=== PATIENT | female | born 1985 | race Two or more races ===

== ENCOUNTER 2018-03-01 07:45 | Inpatient (IN) | payer OTHER ==
[2018-03-01 08:22] VITALS: BMI 32.5
[2018-03-01 08:59] LABS: BASO % 0.3 % (0-2.0); EOS % 0.5 % (0-4.5); HEMATOCRIT 31.3 % (32.4-45.2); LYMPH % 19.5 % (8-40); MCH 28.4 pg (25.7-33.7); MCHC 35.1 g/dl (32.0-36.0); MEAN CELL VOLUME 81.1 fl (80-96); MEAN PLT VOLUME 8.5 fl (7.5-11.1); MONO % 6.2 % (3.8-10.2); NEUT % 73.5 % (42.8-82.8); PLATELET COUNT 246 K/MM3 (134-434); RBC 3.86 M/mm3 (3.60-5.2); WHITE BLOOD COUNT 8.6 K/mm3 (4.0-10.0)
[2018-03-01] MEDS ORDERED: BUTORPHANOL TARTRATE 1 MG/ML VIAL IVPB ONE (08:59)
[2018-03-01] MEDS ORDERED: PROMETHAZINE HCL 25 MG/1 ML VIAL IVPUSH ONE (08:59)
--- NOTE | 2018-03-01 08:59 | HP ---
Past Medical History - Admission Chief Complaint: Contractions, light vaginal bleeding History of Present Illness: 32 y/o with SIUP at 39 weeks with c/o labor pains and light vaginal bleeding since 10pm last night. +Fm. uncomplicated. History Source: Patient, Medical Record Limitations to Obtaining History: No Limitations - Past Medical History Cardiovascular: No: HTN Pulmonary: No: COPD Gastrointestinal: No: GERD Hepatobiliary: No: Hepatitis B, Hepatitis C Reproductive: No: Endometriosis, PID ...: 4 ...Para: 2 ...Term: 2 ...Induced : 1 ...EDC by [facility]: 03/07/18 Heme/Onc: No: Anemia Infectious Disease: No: HIV, MRSA, STD's Psych: No: Bipolar, Depression - Past Surgical History Past Surgical History: Yes: None Hx Myomectomy: No Hx Transabdominal Cerclage: No - Smoking History Smoking history: Never smoked - Alcohol/Substance Use Hx Alcohol Use: No History of Substance Use: reports: None - Social History Usual Living Arrangement: Yes: With Spouse ADL: Independent History of Recent Travel: No Home Medications - Allergies Allergies/Adverse Reactions: Allergies Allergy/AdvReac Type Severity Reaction Status Date / Time No Known Allergies Allergy Verified 03/01/18 08:26 - Home Medications Home Medications: Ambulatory Orders Tablet 1 tab PO DAILY 03/01/18 Review of Systems - Review of Systems Constitutional: reports: No Symptoms Eyes: reports: No Symptoms HENT: reports: No Symptoms Neck: reports: No Symptoms Cardiovascular: reports: No Symptoms Respiratory: reports: No Symptoms Gastrointestinal: reports: Other (contractions) Genitourinary: reports: Vaginal Bleeding (bloody show/light bleeding) Breasts: reports: No Symptoms Reported Musculoskeletal: reports: No Symptoms Integumentary: reports: No Symptoms Neurological: reports: No Symptoms Endocrine: reports: No Symptoms Hematology/Lymphatic: reports: No Symptoms Psychiatric: reports: No Symptoms Physical Exam - Maternity Vital Signs: Vital Signs Temperature 97.2 F L 03/01/18 08:15 Pulse Rate 82 03/01/18 08:15 Respiratory Rate 18 03/01/18 08:15 Blood Pressure 104/67 03/01/18 08:15 O2 Sat by Pulse Oximetry (%) Constitutional: Yes: Well Nourished, Calm, Mild Distress (with contractions) Neck: Yes: Supple Cardiovascular: Yes: Regular Rate and Rhythm Lungs: Clear to auscultation - Abdominal Exam/OB Number of Fetuses: Single Presentation: Vertex Contractions: Yes Intensity: Mod/Strong Category: I Accelerations: Uniform Decelerations: None - Vaginal Exam/OB Dilatation (cm): 5 Effacement (%): 70 Amniotic Membrane Status: Ruptured (AROM for clear fluid) Presentation: Vertex/Position Station: -2 - Physical Exam Psychiatric: Yes: Alert, Oriented Hemorrhage Risk Assessment - Risk Factors Medium Risk Factors: Yes: None High Risk Factors: Yes: None Risk Score: 1 Risk Level: Medium Risk Problem List - Problems (1) Active labor at term Code(s): [id number] - Assessment/Plan 32 y/o with SIUP in labor AFVSS FHTS cat 1 active management of labor GBS negative
[2018-03-01] MEDS ORDERED: ELECTROLYTE-148 SOLN 1,000 ML IV SCH (09:00)
[2018-03-01 09:11] LABS: INR 0.95 (0.83-1.09); PROTHROMBIN TIME (PATIENT) 11.2 SEC (9.7-13.0)
[2018-03-01 09:14] LABS: ACTIVATED PTT 25.5 SECONDS (25.2-36.5)
[2018-03-01] MEDS ORDERED: OXYTOCIN 30 UNITS in 0.9% NS 30 UNIT/500 ML INFUS.BAG IVPB SCH (09:15)
[2018-03-01 09:41] LABS: ANION GAP 13 MMOL/L (8-16); BLOOD UREA NITROGEN 8 mg/dL (7-18); CALCIUM 8.5 mg/dL (8.5-10.1); CHLORIDE 108 mmol/L (98-107); CO2 19 mmol/L (21-32); CREATININE 0.4 mg/dL (0.55-1.3); GLUCOSE,RANDOM 102 mg/dL (74-106); POTASSIUM 3.7 mmol/L (3.5-5.1); SODIUM 140 mmol/L (136-145)
[2018-03-01] MEDS ORDERED: TUBERCULIN PPD 5 TU/0.1ML SYRINGE (IN PATIENT USE ONLY) ID ONE (10:00)
[2018-03-01] MEDS ORDERED: OXYTOCIN 20 UNITS in 0.9% NS 20 UNIT/1,000 ML INFUS.BAG IV ONE ×2 (10:23→11:27)
[2018-03-01] MEDS ORDERED: LIDOCAINE HCL 1% PRESERVATIVE FREE - 30ML VIAL ONE (11:21)
[2018-03-01] MEDS ORDERED: ACETAMINOPHEN 325 MG TABLET (FP) PO PRN (11:55)
[2018-03-01] MEDS ORDERED: METHYLERGONOVINE MALEATE 0.2 MG/1 ML AMP IM PRN (11:55)
[2018-03-01] MEDS ORDERED: BENZOCAINE 28 GM HEMORRHOIDAL OINTMENT PR PRN (11:55)
[2018-03-01] MEDS ORDERED: WITCH HAZEL 50% (TUCKS) 40 PAD/JAR PAD TP PRN (11:55)
[2018-03-01] MEDS ORDERED: BENZOCAINE 20% 57 GM BOTTLE TP PRN (11:55)
[2018-03-01] MEDS ORDERED: IBUPROFEN 600 MG TABLET (FP) PO PRN (11:55)
[2018-03-01] MEDS ORDERED: BISACODYL 10 MG SUPP.RECT PR PRN (11:55)
--- NOTE | 2018-03-01 11:57 | PN ---
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
[2018-03-01] MEDS: PRENATAL VITAMINS W/ FOLIC ACID TABLET (FP) PO SCH (15:40)
[2018-03-02 07:22] LABS: BASO % 0.3 % (0-2.0); EOS % 1.3 % (0-4.5); HEMATOCRIT 32.5 % (32.4-45.2); HEMOGLOBIN 10.7 GM/dL (10.7-15.3); LYMPH % 25.7 % (8-40); MCH 26.8 pg (25.7-33.7); MCHC 32.9 g/dl (32.0-36.0); MEAN CELL VOLUME 81.3 fl (80-96); MEAN PLT VOLUME 8.1 fl (7.5-11.1); MONO % 5.2 % (3.8-10.2); NEUT % 67.5 % (42.8-82.8); PLATELET COUNT 233 K/MM3 (134-434); RBC 3.99 M/mm3 (3.60-5.2); RDW 15.4 % (11.6-15.6); WHITE BLOOD COUNT 10.7 K/mm3 (4.0-10.0)
[2018-03-02] MEDS: PRENATAL VITAMINS W/ FOLIC ACID TABLET (FP) PO SCH (09:34)
[2018-03-02] MEDS ORDERED: DIPHTH,PERTUSS(ACELL),TET 0.5 ML DISP.SYRIN IM ONE (10:00)
--- NOTE | 2018-03-02 10:04 | PN ---
Post Progress Note - Subjective Subjective: Pt doing well, no complaints. Tolerating diet, ambulating, voiding. VB minimal. Type of Delivery: Vital Signs: Vital Signs Temperature 98.4 F 03/02/18 08:44 Pulse Rate 81 03/02/18 08:44 Respiratory Rate 20 03/02/18 08:44 Blood Pressure 122/77 03/02/18 08:44 O2 Sat by Pulse Oximetry (%) Breast Exam: Yes: Soft Uterus: Yes: Fundus Firm Abdomen/GI: Yes: Abdomen soft, Passing flatus, Tolerating PO. No: Tender Lochia: Yes: Rubra Extremities: Yes: Calves non-tender. No: Calf tenderness Perineum: Yes: Laceration (1st degree) Activity: Ambulating - Labs Labs: CBC WBC 10.7 K/mm3 (4.0-10.0) H 03/02/18 06:34 RBC 3.99 M/mm3 (3.60-5.2) 03/02/18 06:34 Hgb 10.7 GM/dL (10.7-15.3) 03/02/18 06:34 Hct 32.5 % (32.4-45.2) 03/02/18 06:34 MCV 81.3 fl (80-96) 03/02/18 06:34 MCH 26.8 pg (25.7-33.7) 03/02/18 06:34 MCHC 32.9 g/dl (32.0-36.0) 03/02/18 06:34 RDW 15.4 % (11.6-15.6) 03/02/18 06:34 Plt Count 233 K/MM3 (134-434) 03/02/18 06:34 MPV 8.1 fl (7.5-11.1) 03/02/18 06:34 Absolute Neuts (auto) 7.2 K/mm3 (1.5-8.0) 03/02/18 06:34 Neutrophils % 67.5 % (42.8-82.8) 03/02/18 06:34 Lymphocytes % 25.7 % (8-40) D 03/02/18 06:34 Monocytes % 5.2 % (3.8-10.2) 03/02/18 06:34 Eosinophils % 1.3 % (0-4.5) D 03/02/18 06:34 Basophils % 0.3 % (0-2.0) 03/02/18 06:34 Nucleated RBC % 0 % (0-0) 03/02/18 06:34 Problem List - Problems (1) Active labor at term Code(s): CJM5122 - (2) Vaginal delivery Code(s): O80 - ENCOUNTER FOR FULL-TERM UNCOMPLICATED DELIVERY Assessment/Plan 32 y/o PPD#1 s/p normal regular diet ambulation routine care
[2018-03-03] MEDS: PRENATAL VITAMINS W/ FOLIC ACID TABLET (FP) PO SCH (09:30)
[2018-03-03 11:12] VITALS: BP 106/65; PULSE 70; TEMP 99.6
--- NOTE | 2018-03-03 14:38 | DS ---
Physical Exam-QUALITY CONTROL ASSOCIATE Vital Signs: Vital Signs Temperature 99.6 F 03/03/18 09:00 Pulse Rate 70 03/03/18 09:00 Respiratory Rate 17 03/03/18 09:00 Blood Pressure 106/65 03/03/18 09:00 O2 Sat by Pulse Oximetry (%) Constitutional: Yes: Well Nourished Eyes: Yes: Conjunctiva Clear HENT: Yes: Atraumatic Neck: Yes: Supple Cardiovascular: Yes: Regular Rate and Rhythm Respiratory: Yes: Regular Gastrointestinal: Yes: Normal Bowel Sounds External Genitalia: Yes: Normal Vaginal Exam: Yes: Normal Cervix: Yes: Normal Uterus: Yes: Firm ....Post : Yes: Uterus firm, Slight lochia rubra Breast(s): Yes: WNL Musculoskeletal: Yes: WNL Neurological: Yes: Alert, Oriented ...Motor Strength: WNL Psychiatric: Yes: Alert, Oriented Labs: CBC, BMP 03/02/18 06:34 03/01/18 08:40 Delivery - Delivery Vaginal Delivery: No Problems Type of Anesthesia: None Episiotomy/Laceration: 1st degree EBL (cc): 250 Delivery, Single - Stages of Labor Date 1st Stage Initiatied: 03/01/18 Time 1st Stage Initiated: 05:00 Date 2nd Stage Initiated: 03/01/18 Time 2nd Stage Initiated: 11:30 Date of Delivery: 03/01/18 Time of Delivery: 11:40 Time Placenta Delivered: 11:45 Placenta: Yes: Spontaneous - 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: Yes Name: Alma Delia Isabel Infant Gender: Female Weight: 6 lb Position: Left, OA Total Hours ROM (Hrs/Mins): 2H40M - 1 Minute Total Score: 9 5 Minutes Total Score: 9 - [place] Feeding Plan Initial Plan: Elected not to breastfeed exclusively throughout hospitalization Discharge Summary Reason For Visit: LABOR ADMISSION Current Active Problems Active labor at term (Acute) Vaginal delivery (Acute) Procedures: Principal: Normal vaginal delivery Hospital Course: Routine care Condition: Good - Instructions Diet, Activity, Other Instructions: Physical activity Resume your normal everyday activity as tolerated no heavy lifting or exercise until seen by your surgeon. You may walk unlimited shailesh of and climb stairs. You may resume driving the car when you feel safe and comfortable behind the wheel. No sexual activity as instructed. Wound care If you have a bandage, leave it on, and keep dry for 48-72 hours. After that time discard the outer bandage. If they are tapes on the skin under the out of bandage leave them in place. They will peel off in the next 7 to 10 days. Do Not Peel them off. You may shower the day after surgery. If there are tapes present on the skin, you may shower over them. Diet There are no dietary restrictions. Eat healthy, high-fiber foods. Drink 6 to 8 glasses of liquid each day. This will assist in keeping your bowels are regular. Pain management You may take Tylenol or acetaminophen or Ibuprofen (for example, Motrin, Advil etc.) from my pain prescription medication is ordered should be taken as prescribed for moderate to severe pain. Call MD for any of the following: Severe pain not relieved by medication Fever of 101 or higher Excessive bleeding or drainage on dressing Inability to urinate return to office in 6 weeks for check. call for appointment. Referrals: Snajana Vazquez DO [Staff Physician] - Disposition: HOME - Home Medications Comprehensive Discharge Medication List: Ambulatory Orders Tablet 1 tab PO DAILY 03/01/18 Ibuprofen [Motrin -] 600 mg PO QID #28 tablet 03/03/18
== END 2018-03-03 18:30 | disposition home or self-care (01) | DRG 560 ==
LOC: JLDR 07:45 → J3W 14:00
PROVIDERS: ADMIT Obstetrics & Gynecology; ATTEND Obstetrics & Gynecology
PROC: 10D07Z8 Extraction of Products of Conception, Other, Via Natural or Artificial Opening (ICD-10-PCS; principal; 2018-03-01)
PROC: 0HQ9XZZ Repair Perineum Skin, External Approach (ICD-10-PCS; 2018-03-01)
DX: O70.0 First degree perineal laceration during delivery (principal); Z3A.39 39 weeks gestation of pregnancy; Z37.0 Single live birth
CPT/HCPCS: 36415; 59409; 71046-TC-FY; 80048; 85025; 85610; 85730; 86593; 86850; 86900; 86901; 90715